=== PATIENT | male | born 2000 | race Caucasian/White ===

== ENCOUNTER 2021-05-14 11:52 | Emergency (ER) | payer OTHER ==
[2021-05-14 12:11] VITALS: BP 101/58; PULSE 58; TEMP 97.6; BMI 29.2
[2021-05-14 13:38] LABS: BASO % 0.7 % (0-2.0); EOS % 1.3 % (0-4.5); HEMATOCRIT 43.2 % (35.4-49); HEMOGLOBIN 14.2 GM/dL (11.7-16.9); LYMPH % 53.4 % (8-40); MCH 31.5 pg (25.7-33.7); MCHC 32.8 g/dl (32.0-35.9); MEAN PLT VOLUME 9.6 fl (7.5-11.1); MONO % 11.9 % (3.8-10.2); NEUT % 32.7 % (42.8-82.8); PLATELET COUNT 337 10^3/uL (134-434); RDW 12.9 % (11.9-15.9); WHITE BLOOD COUNT 4.4 K/mm3 (4.0-10.0)
[2021-05-14 13:59] LABS: BLOOD UREA NITROGEN 13.7 mg/dL (7-18); CALCIUM 9.8 mg/dL (8.5-10.1)
[2021-05-14 14:00] LABS: ALBUMIN 4.1 g/dl (3.4-5.0)
[2021-05-14 14:02] LABS: CREATININE 0.9 mg/dL (0.55-1.3)
[2021-05-14 14:04] LABS: BILIRUBIN,TOTAL 0.2 mg/dL (0.2-1); TOT PROT 7.1 g/dl (6.4-8.2)
[2021-05-14 14:12] LABS: PH,URINE 6.5 (5.0-8.0); URINE APPEARANCE CLEAR; URINE BILIRUBIN NEGATIVE (NEGATIVE); URINE COLOR YELLOW; URINE GLUCOSE (UA) NEGATIVE (NEGATIVE); URINE KETONE NEGATIVE (NEGATIVE); URINE LEUK ESTERASE NEGATIVE (NEGATIVE); URINE NITRITE NEGATIVE (NEGATIVE); URINE PROTEIN NEGATIVE (NEGATIVE); URINE UROBILINOGEN 0.2 mg/dL (0.2-1.0)
== END 2021-05-14 15:00 | disposition home or self-care (01) ==
LOC: JER 11:52
DX: M54.50 Low back pain, unspecified (principal)
CPT/HCPCS: 36415; 72100-TC-FY; 80053; 81003; 82550; 82553; 83690; 85025; 87086; 99284-25